=== PATIENT | female | born 1960 | race Caucasian/White ===

== ENCOUNTER → 2024-05-06 09:52 | Outpatient (BNVA) | payer OTHER, SELFPAY | PROVIDERS: PCP Family Medicine; Visit Provider Internal Medicine | DX: S60.222A Contusion of left hand, initial encounter (principal); S00.93XA Contusion of unspecified part of head, initial encounter; W18.30XA Fall on same level, unspecified, initial encounter | CPT/HCPCS: 73110 ==

== ENCOUNTER 2024-05-06 11:12 | Emergency (ER) | payer OTHER, MEDICARE, SELFPAY ==
--- NOTE | ~2024-05-06 | CT_ITS ---
EXAMINATION: CT FACIAL BONES WITHOUT CONTRAST CLINICAL INFORMATION: Status post fall. COMPARISON: None available. TECHNIQUE: Contiguous axial images through the maxillofacial bones using 3 mm collimation with bone and soft tissue algorithm. Sagittal and coronal reformatted images acquired. This CT examination was performed using dose optimization techniques as appropriate, variously including the following: *Automated exposure control *Adjustment of mA and/or kV according to patient size (this includes techniques or standardized protocols for targeted exams where dose is matched to indication/reason for exam; i.e. extremities or head) *Use of iterative reconstruction technique. DLP: 355.28 mGy centimeter. FINDINGS: Nasal bones, nasal septum and vomer are intact. Orbits are intact. No hematoma or fluid collections in the intraconal or extraconal compartments of the orbits. The eyeballs are intact. Zygomatic arcs are intact. Maxillary 3. Though plates are intact. Mandible is intact. No air-fluid levels in the paranasal sinuses. Tympanic cavities and mastoid cells are aerated. Pneumatized petrous apices, congenital. Degenerative changes in the temporomandibular joints more pronounced on the right side. Multilevel cervical spondylosis not fully included in the [id number]. Intracranial calcifications of the IVC is. CT/CT cervical spine wo IV con IMPRESSION: No acute fracture, maxillofacial bones. EXAMINATION: CT CERVICAL SPINE WITHOUT CONTRAST CLINICAL INFORMATION: Status post fall. COMPARISON: None available. TECHNIQUE: Contiguous axial images through the cervical spine using 3 mm collimation with bone and soft tissue algorithm. Sagittal and coronal reformatted images acquired. This CT examination was performed using dose optimization techniques as appropriate, variously including the following: *Automated exposure control *Adjustment of mA and/or kV according to patient size (this includes techniques or standardized protocols for targeted exams where dose is matched to indication/reason for exam; i.e. extremities or head) *Use of iterative reconstruction technique. DLP: 358.52 mGy centimeter. FINDINGS: Craniocervical junction is intact. Degenerative changes in the periodontal C1 region. Marginal osteophyte formation, endplate irregularity, subchondral cyst formation, disc desiccation and vacuum phenomenon from C3 to C7. Incomplete ankylosis of the right facet joint C2-3. No gross malalignment between the vertebral bodies or the facet joints. C1 is intact. C2 is intact. Right facet joint hypertrophy. C3 is intact. Right facet joint hypertrophy. C4 is intact. C5 is intact. C6 is intact. C3 7 is intact. No prevertebral compartment hematoma. IMPRESSION: Multilevel cervical spondylosis without acute fracture or trauma-related listhesis. Electronically signed by: Gurdeep Mcgee MD 05/06/2024 12:55 PM EDT
--- NOTE | ~2024-05-06 | XR_ITS ---
EXAMINATION: XR WRIST 3 OR MORE VIEWS LEFT, XR HAND 3 OR MORE VIEWS LEFT HISTORY: fall COMPARISON: There are no prior studies available for comparison. FINDINGS: Six views of the left hand and wrist are submitted. Osseous mineralization is normal. There is no fracture or dislocation. The joint spaces are preserved. The soft tissues are unremarkable. XR/XR hand LT min 3V IMPRESSION: No evidence of fracture of the left hand or wrist. Electronically signed by: Davonte Everett MD 05/06/2024 12:29 PM EDT
--- NOTE | ~2024-05-06 | CT_ITS ---
EXAMINATION: CT HEAD WITHOUT CONTRAST CLINICAL INFORMATION: +HS, RAE, fall COMPARISON: None available. TECHNIQUE: Contiguous axial imaging was performed from the skull base to vertex without intravenous administration of contrast. This CT examination was performed using dose optimization techniques as appropriate, variously including the following: *Automated exposure control *Adjustment of mA and/or kV according to patient size (this includes techniques or standardized protocols for targeted exams where dose is matched to indication/reason for exam; i.e. extremities or head) *Use of iterative reconstruction technique DLP: 632 mGy-cm FINDINGS: The bony calvarium is intact. The skull base is intact. No acute intracranial hemorrhage, mass effect, midline shift, hydrocephalus or herniation. Dooley-white matter differentiation is normal. Posterior cranial fossa contents demonstrated no gross masses or acute hemorrhage. Sellar/suprasellar region demonstrated no gross masses. No air-fluid levels in the included paranasal sinuses. Tympanic cavities and mastoid air cells are aerated. CT/CT head/brain wo IV con IMPRESSION: No acute fracture, bony calvarium. No acute intracranial hemorrhage. Electronically signed by: Gurdeep Mcgee MD 05/06/2024 01:05 PM EDT
--- NOTE | ~2024-05-06 | CT_ITS ---
EXAMINATION: CT FACIAL BONES WITHOUT CONTRAST CLINICAL INFORMATION: Status post fall. COMPARISON: None available. TECHNIQUE: Contiguous axial images through the maxillofacial bones using 3 mm collimation with bone and soft tissue algorithm. Sagittal and coronal reformatted images acquired. This CT examination was performed using dose optimization techniques as appropriate, variously including the following: *Automated exposure control *Adjustment of mA and/or kV according to patient size (this includes techniques or standardized protocols for targeted exams where dose is matched to indication/reason for exam; i.e. extremities or head) *Use of iterative reconstruction technique. DLP: 355.28 mGy centimeter. FINDINGS: Nasal bones, nasal septum and vomer are intact. Orbits are intact. No hematoma or fluid collections in the intraconal or extraconal compartments of the orbits. The eyeballs are intact. Zygomatic arcs are intact. Maxillary 3. Though plates are intact. Mandible is intact. No air-fluid levels in the paranasal sinuses. Tympanic cavities and mastoid cells are aerated. Pneumatized petrous apices, congenital. Degenerative changes in the temporomandibular joints more pronounced on the right side. Multilevel cervical spondylosis not fully included in the [id number]. Intracranial calcifications of the IVC is. CT/CT facial bones wo IV con IMPRESSION: No acute fracture, maxillofacial bones. EXAMINATION: CT CERVICAL SPINE WITHOUT CONTRAST CLINICAL INFORMATION: Status post fall. COMPARISON: None available. TECHNIQUE: Contiguous axial images through the cervical spine using 3 mm collimation with bone and soft tissue algorithm. Sagittal and coronal reformatted images acquired. This CT examination was performed using dose optimization techniques as appropriate, variously including the following: *Automated exposure control *Adjustment of mA and/or kV according to patient size (this includes techniques or standardized protocols for targeted exams where dose is matched to indication/reason for exam; i.e. extremities or head) *Use of iterative reconstruction technique. DLP: 358.52 mGy centimeter. FINDINGS: Craniocervical junction is intact. Degenerative changes in the periodontal C1 region. Marginal osteophyte formation, endplate irregularity, subchondral cyst formation, disc desiccation and vacuum phenomenon from C3 to C7. Incomplete ankylosis of the right facet joint C2-3. No gross malalignment between the vertebral bodies or the facet joints. C1 is intact. C2 is intact. Right facet joint hypertrophy. C3 is intact. Right facet joint hypertrophy. C4 is intact. C5 is intact. C6 is intact. C3 7 is intact. No prevertebral compartment hematoma. IMPRESSION: Multilevel cervical spondylosis without acute fracture or trauma-related listhesis. Electronically signed by: Gurdeep Mcgee MD 05/06/2024 12:55 PM EDT
--- NOTE | ~2024-05-06 | XR_ITS ---
EXAMINATION: XR ELBOW 3 VIEWS LEFT HISTORY: fall COMPARISON: There are no prior studies available for comparison. FINDINGS: Three views of the left elbow are submitted. Osseous mineralization is normal. There is a joint effusion with elevation of the anterior and posterior fat pads. There is angulation of the radial neck suspicious for a nondisplaced fracture. There is no dislocation. The joint spaces are maintained. XR/XR elbow LT min 3V IMPRESSION: Elbow joint effusion. Probable fracture of the radial neck. Follow-up is recommended. Electronically signed by: Davonte Everett MD 05/06/2024 12:32 PM EDT
[2024-05-06 11:38] VITALS: BP 128/60; PULSE 69; RESP 16; TEMP 37.2; O2SAT 99; BMI 29.7
--- NOTE | 2024-05-06 11:38 | ED_ITS ---
HPI - Extremity Injury (Upper) General Chief Complaint: Fall Stated Complaint: Fall, wrist injury Time Seen by Provider: 05/06/24 13:47 Source: patient, RN notes reviewed and old records reviewed Mode of arrival: wheelchair History of Present Illness ED Provider: Sarah Pyle PA-C HPI narrative: 64-year-old female with no significant past medical history presenting to the ED complaining of headache, facial pain, neck pain, and left arm pain s/p mechanical trip and fall at work [employer]. States tripped over shoes, fell on face with + head strike, denies LOC or anticoagulation use. States fell on outstretched arm. denies symptoms prior to fall. Denies epistaxis, nausea, vomiting, vision change or loss, CP/ SOB Related Data Allergies Allergy/AdvReac Type Severity Reaction Status Date / Time meperidine [Demerol] Allergy Unknown Unknown Verified 05/06/24 11:39 adhesive Allergy Unknown Unknown Uncoded 05/06/24 11:39 latex Allergy Unknown Unknown Uncoded 05/06/24 11:39 Review of Systems Review of Systems: Yes all other systems are reviewed and are negative Constitutional: Constitutional: Reports as per HPI Neurologic: Denies Abnormal speech present [facility] Past Medical History Attestation statement: The following information was validated with the patient. Source: old records reviewed Physical Exam Vital Signs: Vital Signs: Last Vital Signs Temp 98.6 F 05/06/24 13:45 Pulse 73 05/06/24 13:45 Resp 20 05/06/24 13:45 BP 127/61 05/06/24 13:45 Pulse Ox 98 05/06/24 13:45 O2 Del Method Room Air 05/06/24 13:45 BMI result Body Mass Index 29.7 Const: General: cooperative, healthy appearing and no acute distress Orientation/consciousness: patient oriented x3 Limitations: no limitations HEENT: Other: + Nasal abrasions & swelling with sligh t ecchymosis no active epistaxis. No septal hematoma Head: Yes normal to inspection, No Sanon's sign, No palpable skull fracture and No raccoon eyes Ears: hearing grossly normal bilaterally General nose exam: no epistaxis Face and sinus: Yes normal facial exam Mouth: Normal oral and palatal mucosa present and no drooling Throat: Yes posterior oropharynx normal and Yes uvula midline Eyes: General: appearance normal, both eyes and all related structures Pupils: Equal, round and reactive pupils present EOM: EOMs intact bilaterally Neck: Neck: Yes normal visual inspection, Yes full ROM, Yes no meningeal signs and No anterior neck swelling Resp: Effort & Inspection: normal respiratory effort and no respiratory distress Cardio: Rate: regular rate GI: Inspection: Yes normal to inspection Palpation (GI): Soft to palpation, nontender, no guarding and not rigid Back/Spine/Pelvis: Other: No midline cervical/thoracic/lumbar spinous tenderness/step-off or deformity Skin: Rashes: no rashes Wounds: no wounds Neuro: General: patient oriented x3, gait normal, tone normal, moves all extremities, no meningeal signs, no focal motor deficits and CN's II-XI intact bilaterally Cranial nerves: Yes CN's II-XII intact bilaterally, Yes Equal, round and reactive pupils present and Yes Bilaterally intact EOM present Cognition (Neuro): normal cognition Speech: No Abnormal speech present Gait exam (Neuro): Normal gait present Motor exam (neuro): 5/5 motor strength present throughout Extrem: Other: Left shoulder without noted deformity. ROM intact. Left elbow with mild swelling. Tender to palpation. Limited full extension secondary to pain. Supination/ pronation intact. Left wrist/ hand with mild tenderness. No deformity. No snuffbox tenderness. Neurovascularly intact. [id number] opposition intact. Course Course Course Narrative: This is a Rapid Medical Exam performed in triage by Sarah Pyle PA-C. Full HPI, ROS and PE to be performed by primary ED provider. 64yo F presenting to the ED c/o facial pain/RAE, neck pain, & LUE pain s/p mechanical fall at work [employer]. +head strike. No AC use. Denies sx prior to fall PE: +nasal swelling & ecchymosis, +L wrist & L elbow ttp. elbow w/limited ROM. NV intact distally Plan: XR's, CT's CT head/brain wo IV con IMPRESSION: No acute fracture, bony calvarium. No acute intracranial hemorrhage. CT cervical spine wo IV con IMPRESSION: Multilevel cervical spondylosis without acute fracture or trauma-related listhesis. CT facial bones wo IV con IMPRESSION: No acute fracture, maxillofacial bones. XR elbow LT min 3V IMPRESSION: Elbow joint effusion. Probable fracture of the radial neck. Follow-up is recommended. > sling applied XR hand LT min 3V IMPRESSION: No evidence of fracture of the left hand or wrist. Results discussed with patient including worrisome signs and symptoms and strict return precautions, and when to return to the emergency department. They verbalized understanding and feel safe for discharge at this time. Medical Decision Making Medical Decision Making [facility] Narrative: 64-year-old female with no significant past medical history presenting to the ED complaining of headache, facial pain, neck pain, and left arm pain s/p mechanical trip and fall at work [employer]. On exam vital signs stable, NAD, nontoxic appearing, physical exam as noted above. No midline spinous tenderness throughout or red flag symptoms. No focal neuro deficits. Concern for fractures vs ICH vs contusion vs concussion. plan: Head/ C-spine/ facial bone CT, x-ray Please refer to course for remaining clinical decision making, interpretation of labs/imaging results, and discussions with consultants and/or family members. Differential Diagnosis Differential Diagnoses: The differential diagnosis associated with the presentation includes As above Admission/Observation Consideration of admission/observation: Escalation of care including admission/observation considered Lab Data [facility] Lab Attestation statement: I reviewed the patient's lab results. Independent Interpretation I performed an independent interpretation of an: Plain X-Ray and CT Scan Radiology Impression Discussion of test interpretation with radiology: I have reviewed the radiologist's reading. Independent Historian Clinical information obtained from an independent historian. History obtained from or confirmed by: Friend External Record Review External record reviewed: Inpatient record, Office record, Outpatient record, Prior outpatient labs, Prior outpatient radiology, Primary care record and Outside ED record Tests considered The following testing was considered but not selected: As above Prescription Management I considered prescription management with: Pain Medication Social Determinants Patient?s care significantly limited by Social Determinants of Health including: Other Social Determinant of Health Procedures Orthopedic Splinting/Casting Injury #1: Side: left Upper Extremity Injury Location: elbow Upper Extremity Immobilizer: sling/shoulder immobilizer Discharge Plan Discharge Clinical Impression: Closed fracture of neck of left radius, Fall, Head injury Patient Disposition: Home, Self-Care Instructions: Elbow Fracture (ED), Head Injury (ED) Additional Instructions: you have a nondisplaced fracture of your radial neck, elbow. Please wear sling. Please continue to move your shoulder, wrist, and fingers so you not develop frozen joints Ice Elevate take Tylenol and ibuprofen for pain FOLLOW UP WITH ORTHOPEDICS, PLEASE CALL TO MAKE AN APPOINTMENT NO HEAVY LIFTING TO LEFT UPPER EXTREMITY if pain persists or worsens / becomes unbearable, you develop constant worsening headaches, nausea /vomiting, vision change, vision loss, weakness return to the ED Referrals: [facility] [place] [facility] [Provider Group] - 1 week Stand Alone Forms: Work/School Release Print Language: Algerian
[2024-05-06 13:45] VITALS: BP 127/61; PULSE 73; RESP 20; TEMP 37; O2SAT 98
[2024-05-06 14:47] VITALS: BP 120/61; PULSE 62; RESP 18; TEMP 36.8; O2SAT 98
== END 2024-05-06 14:49 | disposition home or self-care (01) ==
PROVIDERS: Emergency Provider Emergency Medicine; PCP Family Medicine
DX: S52.132A Displaced fracture of neck of left radius, initial encounter for closed fracture (principal); S00.31XA Abrasion of nose, initial encounter; S09.90XA Unspecified injury of head, initial encounter; S00.33XA Contusion of nose, initial encounter; M79.602 Pain in left arm; M54.2 Cervicalgia; R51.9 Headache, unspecified; W01.0XXA Fall on same level from slipping, tripping and stumbling without subsequent striking against object, initial encounter; Y93.9 Activity, unspecified; Y92.9 Unspecified place or not applicable; Y99.8 Other external cause status
CPT/HCPCS: 29105; 70450; 70486; 72125; 73080; 73130; 99283; 99284

== ENCOUNTER → 2024-05-06 11:38 | Outpatient (BNV) | payer OTHER, SELFPAY | PROVIDERS: PCP Family Medicine; Visit Provider Radiology Diagnostic Radiology | DX: S69.92XA Unspecified injury of left wrist, hand and finger(s), initial encounter (principal); S19.9XXA Unspecified injury of neck, initial encounter; S09.90XA Unspecified injury of head, initial encounter; R51.9 Headache, unspecified; M25.422 Effusion, left elbow | CPT/HCPCS: 70450; 70486; 72125; 73080; 73110; 73130 ==

== ENCOUNTER 2024-05-19 09:49 | Outpatient (AMB) | payer OTHER, MEDICARE, SELFPAY ==
--- NOTE | 2024-05-19 09:59 | A.OFFVIS_ITS ---
Vital Signs 05/19/24 10:06 Height 5 ft 5 in Weight 178 lb BMI 29.6 Handedness Right Intake Visit Reasons: FC- Left radius neck fracture WC DOI 05/06/24 Intake Note: Nahid is a 64 year old right hand dominant female who presents today for a evaluation of her left radius head fx, DOI 05/06/24. Patient states that she tripped and feel over her own feet at work landing on her arm that was overstretched. She was seen at the ED were they gave her a sling and informed her to move her shoulder, wrist and fingers so she doesn't develop frozen joint s. Patient mentions that she is doing better. She states when she is lifting something her arm tends to hurt. Patient has tried Tylenol and Voltaren cream which gives her relief. 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 (doesn't picky up anything heavy no more than a bottle of water) Allergies meperidine [Demerol] Allergy (Unknown, Verified 05/19/24 10:05) Unknown adhesive Allergy (Unknown, Uncoded 05/06/24 11:39) Unknown latex Allergy (Unknown, Uncoded 05/06/24 11:39) Unknown HPI HPI FC- Left radius neck fracture WC DOI 05/06/24: Details: Ms. Schaefer is a 64-year-old [id number] female who presents the office today for evaluation of left elbow and left wrist pain. She sustained an injury on 05/06/2024 where she tripped and fell at work landing on an outstretched arm. She was seen in the emergency department where x-rays were obtained and were significant for a fat pad sign at the elbow. An occult fracture was suspected and therefore she was given a sling and instructed to follow-up with orthopedics outpatient for further evaluation and treatment. She reports that at the time her wrist was not examined but she continues to have persistent pain along the radial aspect of the wrist. 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 No ecchymosis, erythema, or edema. No tenderness to palpation over the olecranon. No tenderness to the medial or lateral epicondyle. Mild tenderness to palpation over the radial head. NVI. Left wrist normal to inspection no ecchymosis erythema or edema. Tenderness to palpation over the distal radius near the area of the radial styloid. No snuffbox tenderness. Able to make a full fist and extend all digits to end range. Able to perform finger abduction, adduction, finger cross, thumbs-up and okay sign without deficit. NVI. Office Procedures AMB Fracture Care Fracture Billing Code: Fracture Billing Code Assessment & Plan Assessment & Plan (1) Distal radius fracture, left: Code(s): S52.502A - Unspecified fracture of the lower end of left radius, initial encounter for closed fracture Category: Medical (2) Radial head fracture: Code(s): S52.123A - Displaced fracture of head of unspecified radius, initial encounter for closed fracture Category: Medical Plan On the office today, we discussed the radial head fracture management is sling as needed with gentle range of motion of flexion, extension pronation and supination of the elbow. These exercises were demonstrated to the patient while in the office today. I instructed no lifting pushing or pulling with the left upper extremity. For the patient's wrist she is significantly tender at the distal radius along the area of the radial styloid. X-ray imaging may indicate the possibility of a nondisplaced fracture. Therefore, I have placed her into a thermal molded volar splint [id number]. She can take this off for hand washing and bathing. I would like to see her back in 4 weeks with repeat x- rays, sooner if needed. 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 X-rays of the left elbow which were obtained while in the office today and were reviewed by me, Shanique Coulter PA-C, revealed possible occult fracture of the radial head. X-rays of the left wrist which were obtained while in the office today and were reviewed by me, Shanique Coulter PA-C, revealed possible nondisplaced fracture of the distal radius. Orders: Orders XR elbow LT min 3V 05/19/24 M25.529 - Pain in unspecified elbow XR wrist LT w scaphoid 05/19/24 M25.539 - Pain in unspecified wrist Coding Level of Care Code New Pt Level 4 (75499) Diagnoses Distal radius fracture, left S52.502A Radial head fracture S52.123A CPT Codes Fracture Care - Fracture Billing Code: Fracture Billing Code ([id number])
[2024-05-19 10:06] VITALS: BMI 29.6
== END 2024-05-19 11:25 | disposition home or self-care (01) ==
LOC: HO.HOS 09:50
PROVIDERS: PCP Family Medicine; Visit Provider Physician Assistant
DX: S52.502A Unspecified fracture of the lower end of left radius, initial encounter for closed fracture (principal); S52.123A Displaced fracture of head of unspecified radius, initial encounter for closed fracture
CPT/HCPCS: 99203

== ENCOUNTER → 2024-05-19 09:53 | Outpatient (BNV) | payer OTHER, MEDICARE, SELFPAY | PROVIDERS: Visit Provider Radiology Diagnostic Radiology | DX: M25.522 Pain in left elbow (principal) | CPT/HCPCS: 73080; 73110 ==

== ENCOUNTER 2024-05-19 10:21 | Outpatient (REF) | payer OTHER, MEDICARE, SELFPAY ==
--- NOTE | ~2024-05-19 | XR_ITS ---
EXAMINATION: XR ELBOW 3 VIEWS LEFT HISTORY: M25.529 - Pain in unspecified elbow COMPARISON: There are no prior studies available for comparison. FINDINGS: Three views of the left elbow are submitted. The examination is limited by patient motion. Osseous mineralization is normal. No definite fracture is seen. There is no dislocation. The joint spaces are preserved. There may be a small joint effusion. XR/XR elbow LT min 3V IMPRESSION: Possible small joint effusion. Limited examination due to patient motion. No definite fracture is seen, although if there is a history of trauma, there may be an occult fracture. Follow-up films are recommended. Electronically signed by: Davonte Everett MD 05/19/2024 10:58 AM EDT
--- NOTE | ~2024-05-19 | XR_ITS ---
CLINICAL HISTORY: M25.539 - Pain in unspecified wrist 4 view left wrist Comparison: None Findings: Bones intact. No dislocations. No significant arthritic change or erosions. No radiopaque foreign body. IMPRESSION: 1. No acute findings This document has been electronically signed by: Sandro Luna MD on 05/21/2024 07:52:32
== END 2024-05-19 10:22 | disposition home or self-care (01) ==
LOC: HO.HOSX 10:21
PROVIDERS: Visit Provider Physician Assistant
DX: M25.522 Pain in left elbow (principal); M25.532 Pain in left wrist
CPT/HCPCS: 73080; 73110; 99202

== ENCOUNTER 2024-06-14 | Outpatient (REF) | payer OTHER, SELFPAY ==
--- NOTE | ~2024-06-14 | XR_ITS ---
EXAMINATION: XR WRIST NAVICULAR LEFT HISTORY: M25.539 - Pain in unspecified wrist COMPARISON: Comparison is made with the prior examination dated 05/19/2024. FINDINGS: Four views of the left wrist including a scaphoid view are submitted. Osseous mineralization is normal. There is no fracture or dislocation. The joint spaces are preserved. The soft tissues are unremarkable. XR/XR wrist LT w scaphoid IMPRESSION: Unremarkable examination of the left wrist. Electronically signed by: Davonte Everett MD 06/16/2024 08:15 AM EDT
--- OUTSIDE RECORDS SUMMARY | 2024-08-15 08:26 | XMS_ITS | Data Portability ---
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 Time On Scene with Patient: 00:22:11 [email or web address] Not available 08/22/2019 18:40:26 Plan of Treatment Reminders Order Date Submit Date Provider Last Modified By Organization Details Last Modified Time Details Appointments None recorded. Lab urinalysis , dipstick 2019 [email or web address] 31 [facility] [place] [facility], [address] [place], [address], 0 18:15:51 culture, urine 2019 MARVIN [facility] (Centralized Electronic Ordering - All Locations), Patient Can Go To The Location Of Their Choice, [id number] 0 07:48:58 Referral None recorded. Procedures None recorded. Surgeries None recorded. Imaging None recorded. Medication Orders Keflex 500 mg capsule 2019 020 [id number], [address], [place], [phone], 0 18:15:59 cephalexin 500 mg capsule 2019 [...] flank pain, malaise and sometimes shaking chills. UTI s are common in women because of the female anatomy, and much less common in males. INSTRUCTIONS Drink plenty of fluid, water is best. Drinking fluids will help to flush the bacteria from your body. Urinate every 2-3 hours Wear cotton underwear and avoid Nylon, Spandex and Lycra which tend to trap moisture and thong underwear which may facilitate UTI s. Avoid tub baths Avoid using Super Tampons [...] condition between 8am-10pm, please call [facility] at [phone] to help navigate your care. [email or web address] Not available 08/22/2019 18:20:35 Reason for Referral None Reported. Results Created Date Observation Date Name Description Value Unit Range Abnormal Flag Note LastModifiedBy Organization Detail LastModifiedTime 08/22/19 20 08/22/2019 urina lysis , dipst ick Appearance cloudy Not Available Spr - [facility] [address], [place], [address], 08/22/2019 18:11:59 08/22/19 20 08/22/2019 urina lysis , dipst ick Color yellow Not Available Spr - Home [address], [place], [address], 08/22/2019 18:11:59 08/22/1908/22/2019 urina lysis , dipst ick Glucose negati ve Not Available Spr - Home [address] [place], [address], 08/22/2019 18:11:59 08/22/1908/22/2019 urina lysis , dipst ick Bilirubin positi ve Not Available Spr - Home [address] [place], [address], 08/22/2019 18:11:59 08/22/1908/22/2019 urina lysis , dipst ick Ketones NEG Not Available Spr - Home [address] [place], [address], 08/22/2019 18:11:59 08/22/1908/22/2019 urina lysis , dipst ick Sp. [place] 1.020 Not Available Spr - Home [address] [place], [address], 08/22/2019 18:11:59 08/22/19 20 08/22/2019 urina lysis , dipst ick Blood + Not Available Spr - Home [address] [place], [address], 08/22/2019 18:11:59 08/22/19 20 08/22/2019 urina lysis , dipst ick pH 5 Not Available Spr - Home [address] [place], [address], 08/22/2019 18:11:59 08/22/19 20 08/22/2019 urina lysis , dipst ick Protein negati ve Not Available Spr - Home [address] [place], [address], 08/22/2019 18:11:59 08/22/19 20 08/22/2019 urina lysis , dipst ick Urobilirubin negati ve Not Available Spr - Home [address] [place], [address], 08/22/2019 18:11:59 08/22/19 20 08/22/2019 urina lysis , dipst ick Nitrites +++ Not Available Spr - [facility] e [address] [place], [address], 08/22/2019 18:11:59 08/22/19 20 08/22/2019 urina lysis , dipst ick Leukocytes +++ Not Available Spr - [facility] [address] [place], [address], 08/22/2019 18:11:59 08/22/1908/23/2019 cultu re, urine specimen description URINE CLEAN CATCH/ MIDSTR EAM Not Available [facility] (Centralized Electronic Ordering - All Locations) Patient Can Go To The Location Of Their Choice, 08/25/2019 07:48:58 08/22/1908/23/2019 cultu re, urine special requests NONE Not Available [facility] (Centralized Electronic Ordering - All Locations) Patient Can Go To The Location Of Their Choice, [id number] 08/25/2019 07:48:58 08/22/1908/25/2019 cultu re, urine culture abnormal >100, 000 COL/M L CITRO BACTE R FREUN DII >100, 000 COL/M L STREP TOCOC CI, GR.B BETA HEMOL YTIC ISOLA VERNA DAVID PTIBI LITY TESTI NG NOT ROUTI SERGIO [...] Name and Address Organization Details Recorded Time [id number] tetanus immune globulin, human medicatio n Not available Not available Not available 08/22/2019 21248 [facility] NICOLE BEAL NP [address] [place], [address], [place] [facility] 0 18:03:55 [id number] Demerol medicatio n Not available Not available Not available 08/22/2019 00870 1 [facility] NICOLE BEAL NP [address] [place], [address], [place] [facility] [...] Time Father No current problems or disability [email or web address] Not available 18:07:21 Mother No current problems or disability [email or web address] Not available 18:07:21 Mother Malignant neoplastic disease [email or web address] Not available 07/2019 18:07:34 Medical History Condition Response Depression Y Gynecological HistoryNo gynecological history recorded. Obstetrics History GPAL:G 0 P 0 0 0 0 Past Encounters Encounter ID Performer Location Encounter Start Date Encounter Closed Date Diagnosis/Indication Diagnosis SNOMED-CT Code Diagnosis ICD10 Code Diagnosis Note [id number] NICOLE BEAL NP [facility] [address] [facility] [place] [address] 08/22/2019 18:02:23 08/23/2019 15:41:19 Urinary tract infectious disease 94562466 N39.0 Health Concerns Section Related Observation LastModified by Organization Detai ls LastModified Time None Recorded Concern Status LastModified by Organization Details LastModified Time None Recorded Advance Directives Directive None Recorded Payers Insurance Date Sequence Insurance Name Policy Number Policy Schneider Covered Member ID Schneider Member ID Guarantor Name 11/06/2020 1 [facility] [id number] Nahid Schaefer [id number] Nahid Schaefer 11/06/2020 1 *SELF PAY* Nahid Schaefer [id number] Nahid Schaefer Notes Date Note Type Note Provider Name and Address Organization Details Recorded Time 08/22/2019 text/html Patient is a 59-year-old female [facility]. We have been doing her household did treat other family members in the past. She has a medical history significant for depression, osteoarthritis, frequent urinary tract infections related to bladder sling surgery in the past. [facility] has been having left [...] pain. NICOLE BEAL, ESME [address], [place], [address], [place] - [facility] 08/22/2019 18:40:36 OBGyn Episode No OBEpisode recorded.
== END 2024-06-14 00:01 ==
LOC: HO.HOSX
PROVIDERS: Visit Provider Physician Assistant
DX: S52.123D Displaced fracture of head of unspecified radius, subsequent encounter for closed fracture with routine healing (principal); S52.502D Unspecified fracture of the lower end of left radius, subsequent encounter for closed fracture with routine healing
CPT/HCPCS: 73110; 99212

== ENCOUNTER 2024-06-14 11:39 | Outpatient (AMB) | payer OTHER, SELFPAY ==
--- NOTE | 2024-06-14 11:45 | MHC.OFFVIS ---
Vital Signs 06/14/24 11:47 Height 5 ft 5 in Weight 178 lb BMI 29.6 Intake Visit Reasons: OV- Left radius neck fracture WC DOI 05/06/24 Intake Note: Nahid is a 64 year old right hand dominant female who presents today for a follow up of her left radius head fx, DOI 05/06/24. Patient reports no complaints or concerns at the moment. She states having some discomfort with over use. Allergies meperidine [Demerol] Allergy (Unknown, Verified 06/14/24 11:47) Unknown adhesive Allergy (Unknown, Uncoded 05/06/24 11:39) Unknown latex Allergy (Unknown, Uncoded 05/06/24 11:39) Unknown HPI HPI OV- Left radius neck fracture WC DOI 05/06/24: Details: Ms. Schaefer is a 64-year-old right-hand dominant female who presents to the office today for follow-up of a left radial head fracture and possible right distal radius fracture that she sustained on 05/06/2024 while she tripped and fell at work. At her last appointment on 05/19/2024 the patient was given a thermal molded volar splint off the shelf and instructed that she should not perform any lifting pushing or pulling. 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 No ecchymosis, erythema, or edema. Able to perform full finger flexion, extension, abduction, adduction, finger cross, okay sign, and thumbs up without deficit. Able to make a closed fist. Able to flex and extend the wrist to end range. Sensation intact. Capillary refill is brisk. Radial pulse intact. Left elbow: Normal to inspection. No ecchymosis, erythema, or edema. No tenderness to palpation over the olecranon. No tenderness to the medial or lateral epicondyle. Slight tenderness to palpation over the radial head. Able to perform full pronation, supination, flexion and extension without difficulty. NVI. Assessment & Plan Assessment & Plan (1) Distal radius fracture, left: Code(s): S52.502A - Unspecified fracture of the lower end of left radius, initial encounter for closed fracture Category: Medical (2) Radial head fracture: Code(s): S52.123A - Displaced fracture of head of unspecified radius, initial encounter for closed fracture Category: Medical Plan Ms. Schaefer is a 64-year-old right-hand dominant female who presents to the office today for follow-up of a left radial head fracture and possible right distal radius fracture that she sustained on 05/06/2024 while she tripped and fell at work. At her last appointment on 05/19/2024 the patient was given a thermal molded volar splint off the shelf and instructed that she should not perform any lifting pushing or pulling. While the office today, the patient reports that her pain and inflammation has decreased since her last visit. She is only slightly tender over the radial head. No tenderness to palpation along the distal radius or the radial styloid were prior suspicion of fracture was located. She may discontinue wearing the thermal molded volar splint at this time. There was consideration of occupational therapy however the patient is doing very well with motion therefore this was deferred at this time. She will follow up p.r.n., sooner if needed. X-rays of the left wrist and scaphoid which were obtained while in the office today and were reviewed by me, Shanique Coulter PA-C, revealed no acute fracture dislocation. Orders: Orders XR wrist LT w scaphoid Today M25.539 - Pain in unspecified wrist Coding Level of Care Code Est Pt Level 3 (51895) Diagnoses Distal radius fracture, left S52.502A Radial head fracture S52.123A
[2024-06-14 11:47] VITALS: BMI 29.6
--- OUTSIDE RECORDS SUMMARY | 2024-06-14 13:48 | XMS_ITS | Data Portability ---
Author Organization [place] [facility] Address [address] [place] [id number] Care Team Providers Care Financial Assistant Name Role Phone RAYRAY RAMIREZ Primary Care Provider [phone] Assessment Encounter Date Assessment Date Assessment LastModified by Organization Details LastModified Time 08/22/2019 08/22/2019 Overview/History :[facility] his 59[facility]year-old [facility] has been having some left lower quadrant abdominal discomfort. She tells me that this pain is very similar to the pain she gets when she has urinary tract infections. She also feels some pressure in her bladder. She has a history of a bladder sling procedure in the past, she tells me she was recently at a [place] and voided in the [place]. She tells me she frequently gets urinary tract infections after doing this. She denies any fevers or chills and no low back pain. She has been staying well hydrated. She had some leftover Flagyl from when she had diverticulitis, she tried taking this as see if it would help with her symptoms but she reports it just made her nauseous. Exam: On exam patient is awake and alert, afebrile and hemodynamically stable. Her blood pressure is a little on the low side however she says that this is baseline for her. She does not have any CVA tenderness, she has clear lungs bilaterally, normal bowel sounds and no pain with palpation. DDx considered, but not limited to:Urinary tract infection is likely as urinalysis was positive for trace blood, leukocytes and nitrates. Pyelonephritis unlikely has no CVA tenderness and no fever. She already has had her appendix and gallbladder removed. Abdomen soft, peritonitis or acute abdomen unlikely. Work up/Results:Urinaly sis showing 1+ blood, nitrates. Urine culture pending. Plan/Discussion:I reviewed the results of urinalysis with the patient. I have given her a dose of Keflex today and sent a prescription for a seven-day course to her pharmacy. I did discuss taking a probiotic while on antibiotics with her. I have encouraged her to stay well hydrated. If she were to develop fevers or low back pain she should contact PCP as this may be a sign of worsening infection. Patient verbalized understanding of discharge instructions as well as ER precautions. Proper Personal Protective Equipment (PPE), including gloves, eye protection and masks were donned and doffed appropriately and all equipment cleaned using approved technique with germicidal disposable wipes prior to and after care of this patient according to [facility]'s infection prevention protocols. Time On Scene with Patient: 00:22:11 [email or web address] Not available 08/22/2019 18:40:26 Plan of Treatment Reminders Order Date Submit Date Provider Last Modified By Organization Details Last Modified Time Details Appointments None recorded. Lab urinalysis , dipstick 2019 [email or web address] 31 [facility], [address] [place] [address], [phone], 0 18:15:51 culture, urine 2019 MARVIN [facility] (Centralized Electronic Ordering - All Locations), Patient Can Go To The Location Of Their Choice, [id number] 0 07:48:58 Referral None recorded. Procedures None recorded. Surgeries None recorded. Imaging None recorded. Medication Orders Keflex [address] [id number], [address], [place], [id number], 0 18:15:59 cephalexin 500 mg capsule 2019 020 [email or web address] Not available 0 18:26:06 Patient TargetsNo targets recorded. Patient Instructions Encounter Date Encounter Id Patient Instructions Last Modified By Organization Details Last Modified Time 08/22/[id number] WE DIPPED YOUR URINE TODAY AND IT WAS SUGGESTIVE OF INFECTION. YOU WERE STARTED ON ANTIBIOTICS AND WE ARE SENDING YOUR URINE FOR CULTURE. IF YOU NEED A DIFFERENT ANTIBIOTIC WE WILL CONTACT YOU IF YOU STARTED TO DEVELOPE BACK PAIN OR FEVERS PLEASE CONTACT PCP THIS CAN BE A SIGN OF THE INFECTION SPREADING TO YOUR KIDNEYS URINARY TRACT INFECTION INSTRUCTIONS BASIC INFORMATION Urinary tract infections(UTI) can involve any portion of the urinary tract. The most common presentation is a bladder infection/cystitis, which usually presents with urinary frequency, burning with urination, urgency, foul smelling cloudy urine and occasionally blood. Kidney infections are less frequent, but more serious, and present with fever, flank pain, malaise and sometimes shaking chills. UTI? s are common in women because of the female anatomy, and much less common in males. INSTRUCTIONS Drink plenty of fluid, water is best. Drinking fluids will help to flush the bacteria from your body. Urinate every 2-3 hours Wear cotton underwear and avoid Nylon, Spandex and Lycra which tend to trap moisture and thong underwear which may facilitate UTI? s . Avoid tub baths Avoid using Super Tampons Use only mild unscented soap to wash your genitals, such as Dove or Ivory, avoid heavily scented body washes. If you are sexually active urinate as soon as possible after intercourse. Yogurt and probiotics may help to establish a more healthy genital environment, and aid in prevention. MEDICATIONS 1.Antibiotics: Usually prescribed if you have a UTI, there are many different effective antibiotics available. It is important that you complete the course of antibiotics you are given. You should feel some improvement within 24-48 hours, if you do not it may be that the bacteria causing your infection is resistant to the prescribed medication. If a urine culture is obtained it will usually take at least 3-4 days to get the final result. 2. Anesthetic/Pain relievers: Phenazopyridine (Pyridium, Uribelle, AZO) is an anesthetic excreted in the urine. This medicine will turn your urine BRIGHT ORANGE! This is normal, and may stain your underwear can contacts. Take this medication as directed with food. 3. Tylenol and Ibuprofen can be helpful for the pain, fever and body aches that can be associated with a kidney infection. Please follow recommended dosing instructions on the bottle. FOLLOW UP 1. If your symptoms are not improving in 24-48 hours 2. If your symptoms are getting more severe 3. Any unusual vaginal discharge 4. Symptoms recur after you complete medication SEEK CARE IMMEDIATELY IF 1.You have shaking chills or temperature over 101.5 2. Severe flank pain 3. Persistent vomiting, unable to keep fluids or medicine down. 4. Worse despite medication. If you develop any new or worsening symptoms and need after hours care, please go to nearest ER and/or call 911. If you have additional concerns or develop a change in your condition between 8am-10pm, please call [facility] at [phone] to help navigate your care. Not available 08/22/2019 18:20:35 Reason for Referral None Reported. Results Created Date Observation Date Name Description Value Unit Range Abnormal Flag Note LastModifiedBy Organization Detail LastModifiedTime 08/22/19 20 08/22/2019 urina lysis , dipst ick Appearance cloudy Not Available [facility] [address] [place], [address], 08/22/2019 18:11:59 08/22/1908/22/2019 urina lysis , dipst ick Color yellow Not Available Spr - [facility] [address] [place], [address], 08/22/2019 18:11:59 08/22/1908/22/2019 urina lysis , dipst ick Glucose negati ve Not Available Spr - Home [address] [place], [address], 08/22/2019 18:11:59 08/22/1908/22/2019 urina lysis , dipst ick Bilirubin positi ve Not Available Spr - Home [address] [place], [address], 08/22/2019 18:11:59 08/22/1908/22/2019 urina lysis , dipst ick Ketones NEG Not Available Spr - Home [address] [place], [address], 08/22/2019 18:11:59 08/22/1908/22/2019 urina lysis , dipst ick Sp. [place] 1.020 Not Available Spr - Home [address] [place], [address], 08/22/2019 18:11:59 08/22/19 20 08/22/2019 urina lysis , dipst ick Blood + Not Available Spr - Home [address] [place], [address], 08/22/2019 18:11:59 08/22/19 20 08/22/2019 urina lysis , dipst ick pH 5 Not Available Spr - Home [address] [place], [address], 08/22/2019 18:11:59 08/22/19 20 08/22/2019 urina lysis , dipst ick Protein negati ve Not Available Spr - Home [address] [place], [address], 08/22/2019 18:11:59 08/22/19 20 08/22/2019 urina lysis , dipst ick Urobilirubin negati ve Not Available Spr - Home [address] [place], [address], 08/22/2019 18:11:59 08/22/19 20 08/22/2019 urina lysis , dipst ick Nitrites +++ Not Available Spr - [facility] [address] [place], [address], 08/22/2019 18:11:59 08/22/1908/22/2019 urina lysis , dipst ick Leukocytes +++ Not Available Spr - [facility] [address] [place], [address], 08/22/2019 18:11:59 08/22/1908/23/2019 cultu re, urine specimen description URINE CLEAN CATCH/ MIDSTR EAM Not Available [facility] (Centralized Electronic Ordering - All Locations) Patient Can Go To The Location Of Their Choice, 08/25/2019 07:48:58 08/22/1908/23/2019 cultu re, urine special requests NONE Not Available [facility] (Centralized Electronic Ordering - All Locations) Patient Can Go To The Location Of Their Choice, 08/25/2019 07:48:58 08/22/1908/25/2019 cultu re, urine culture abnormal >100, 000 COL/M L CITRO BACTE R FREUN DII >100, 000 COL/M L STREP TOCOC CI, GR.B BETA HEMOL YTIC ISOLA VERNA SUSCE PTIBI LITY TESTI NG NOT ROUTI SERGIO PERFO RMED ON THIS ISOLA TE. Not Available [facility] (Centralized Electronic Ordering - All Locations) Patient Can Go To The Location Of Their Choice, 08/25/2019 07:48:58 08/22/1908/25/2019 cultu re, urine report status FINAL 2019 Not Available [facility] (Centralized Electronic Ordering - All Locations) Patient Can Go To The Location Of Their Choice, 08/25/2019 07:48:58 08/22/1908/25/2019 cultu re, urine organism ORGANI SM >100,0 00 COL/ML CITROB ACTER ESTEPHANIA II Not Available [facility] (Centralized Electronic Ordering - All Locations) Patient Can Go To The Location Of Their Choice, 08/25/2019 07:48:58 08/22/1908/25/2019 cultu re, urine method METHOD MIN. INHIB. CONC. (MCG/M L) Not Available [facility] (Centralized Electronic Ordering - All Locations) Patient Can Go To The Location Of Their Choice, 08/25/2019 07:48:58 08/22/1908/25/2019 cultu re, urine ampicillin AMPICI LLIN RESIST ANT resistant Not Available [facility] (Centralized Electronic Ordering - All Locations) Patient Can Go To The Location Of Their Choice, 08/25/2019 07:48:58 08/22/1908/25/2019 cultu re, urine ampicillin/s ulbactam AMPICI LLIN/S ULBACT AM RESIST ANT resistant Not Available [facility] (Centralized Electronic Ordering - All Locations) Patient Can Go To The Location Of Their Choice, 08/25/2019 07:48:58 08/22/1908/25/2019 cultu re, urine amoxicillin/ clavulanic acid AMOXIC ILLIN/ CLAVUL AN RESIST ANT resistant Not Available [facility] (Centralized Electronic Ordering - All Locations) Patient Can Go To The Location Of Their Choice, 08/25/2019 07:48:58 08/22/1908/25/2019 cultu re, urine cefazolin CEFAZO CARLOS RESIST ANT resistant Not Available [facility] (Centralized Electronic Ordering - All Locations) Patient Can Go To The Location Of Their Choice, 08/25/2019 07:48:58 08/22/1908/25/2019 cultu re, urine cefepime CEFEPI ME SUSCEP TIBLE susceptib le Not Available [facility] (Centralized Electronic Ordering - All Locations) Patient Can Go To The Location Of Their Choice, 08/25/2019 07:48:58 08/22/1908/25/2019 cultu re, urine ceftriaxone CEFTRI AXONE SUSCEP TIBLE susceptib le Not Available [facility] (Centralized Electronic Ordering - All Locations) Patient Can Go To The Location Of Their Choice, 08/25/2019 07:48:58 08/22/1908/25/2019 cultu re, urine ciprofloxaci n CIPROF LOXACI N SUSCEP TIBLE susceptib le Not Available [facility] (Centralized Electronic Ordering - All Locations) Patient Can Go To The Location Of Their Choice, 08/25/2019 07:48:58 08/22/1908/25/2019 cultu re, urine ertapenem ERTAPE NEM SUSCEP TIBLE susceptib le Not Available [facility] (Centralized Electronic Ordering - All Locations) Patient Can Go To The Location Of Their Choice, 08/25/2019 07:48:58 08/22/1908/25/2019 cultu re, urine gentamicin GENTAM ICIN SUSCEP TIBLE susceptib le Not Available [facility] (Centralized Electronic Ordering - All Locations) Patient Can Go To The Location Of Their Choice, 08/25/2019 07:48:58 08/22/1908/25/2019 cultu re, urine levofloxacin LEVOFL OXACIN SUSCEP TIBLE susceptib le Not Available [facility] (Centralized Electronic Ordering - All Locations) Patient Can Go To The Location Of Their Choice, 08/25/2019 07:48:58 08/22/1908/25/2019 cultu re, urine meropenem MEROPE NEM SUSCEP TIBLE susceptib le Not Available [facility] (Centralized Electronic Ordering - All Locations) Patient Can Go To The Location Of Their Choice, 08/25/2019 07:48:58 08/22/1908/25/2019 cultu re, urine nitrofuranto in NITROF URANTO IN SUSCEP TIBLE susceptib le Not Available [facility] (Centralized Electronic Ordering - All Locations) Patient Can Go To The Location Of Their Choice, 08/25/2019 07:48:58 08/22/1908/25/2019 cultu re, urine piperacillin /tazobactam PIPERA CILLIN /TAZOB AC SUSCEP TIBLE susceptib le Not Available [facility] (Centralized Electronic Ordering - All Locations) Patient Can Go To The Location Of Their Choice, 08/25/2019 07:48:58 08/22/1908/25/2019 cultu re, urine trimeth/sulf amethox TRIMET H/SULF AMETHO X SUSCEP TIBLE susceptib le Not Available [facility] (Centralized Electronic Ordering - All Locations) Patient Can Go To The Location Of Their Choice, 08/25/2019 07:48:58 08/22/1908/25/2019 cultu re, urine tetracycline TETRAC YCLINE SUSCEP TIBLE susceptib le Not Available [facility] (Centralized Electronic Ordering - All Locations) Patient Can Go To The Location Of Their Choice, 08/25/2019 07:48:58 Result Notes None recorded. Medical Equipment None Reported. Allergies Allergen ID Allergen Name Allergen Category Reaction Reaction Severity Criticality Documentation Date Start Date Code Code System Note Provider Name and Address Organization Details Recorded Time 146687 tetanus immune globulin, human medicatio n Not available Not available Not available 08/22/2019 43121 RxNorm NICOLE BEAL NP [address] [place], [address], [place] [facility] 0 18:03:55 [id number] Demerol medicatio n Not available Not available Not available 08/22/2019 11243 1 RxNorm NICOLE BEAL NP [address] [place], [address], [place] [facility] 0 18:04:17 Medications Name Sig Start Date Stop Date Status Note LastModified by Organization Details LastModified Time Vitamin C 500 mg tablet TAKE 1 TABLET BY MOUTH ONCE DAILY active Not Available Not Available No t Available sertraline 100 mg tablet TK 1 T PO D active Not Available Not Available No t Available sulfamethox azole 800 mg-trimetho prim 160 mg tablet 08/21 completed Not Available Not Available Not Available cyclopentol ate 1 % eye drops active Not Available Not Available Not Available prednisolon e acetate 1 % eye drops,suspe nsion 08/21 completed Not Available Not Available Not Available cephalexin 500 mg capsule 500 mg PO administe red on scene. Time administe red:1800 2019 active Not Available Not Available Not Avai lable gabapentin 300 mg capsule 08/21 completed Not Available Not Available Not Available sertraline 50 mg tablet active Not Available Not Available Not Available oxycodone 5 mg tablet 08/21 completed Not Available Not Available Not Available loratadine active Not Available Not Av ailable Not Available Readi-Cat 2 2 % (w/v) oral suspension USE PER RADIOLOGY active Not Available Not Available No t Available Flucelvax Quad (PF) 60 mcg (15 mcg x 4)/0.5 mL IM syringe ADM 0.5ML IM UTD active Not Available Not Available No t Available Vitals Date Recorded Respiratory rate Body temperature Oxygen saturation Oxygen saturation in Arterial blood by Pulse oximetry Heart rate Systolic blood pressure Diastolic blood pressure Provider Name and Address Organization Details Last Updated DateTime 0 16 /min 98.5 [degF] 97 % 97 % 72 /min 100 mm[Hg] 60 mm[Hg] Not Available [facility] 0 18:06:31 Social History None recorded. Functional Status None recorded. Mental Status None recorded. Family History Relationship Description Onset Age of this Age Resolved Age Notes LastModified by Organization Details LastModified Time Father No current problems or disability [email or web address] Not available 18:07:21 Mother No current problems or disability [email or web address] Not available 18:07:21 Mother Malignant neoplastic disease [email or web address] Not available 07/2019 18:07:34 Medical History Condition Response Depression Y Gynecological HistoryNo gynecological history recorded. Obstetrics History GPAL:G 0 P 0 0 0 0 Past Encounters Encounter ID Performer Location Encounter Start Date Encounter Closed Date Diagnosis/Indication Diagnosis SNOMED-CT Code Diagnosis ICD10 Code Diagnosis Note [id number] NICOLE BEAL NP [facility] - HOME [address] [place], [place] [address] [address] 08/22/2019 18:02:23 08/23/2019 15:41:19 Urinary tract infectious disease 51186970 N39.0 Health Concerns Section Related Observation LastModified by Organization Detai ls LastModified Time None Recorded Concern Status LastModified by Organization Details LastModified Time None Recorded Advance Directives Directive None Recorded Payers Encounter Date Sequence Insurance Name Policy Number Policy Schneider Covered Member ID Schneider Member ID Guarantor Name 08/22/2019 1 [facility] [id number] Nahid Schaefer [id number] Nahid Schaefer Notes Date Note Type Note Provider Name and Address Organization Details Recorded Time 08/22/2019 text/html Patient is a 59-[facility]. We have been doing her household did treat other family members in the past. She has a medical history significant for depression, osteoarthritis, frequent urinary tract infections related to bladder sling surgery in the past. She contacted [facility] today because she has been having left sided abdominal pain which she reports is frequently present when she has urinary tract infections. She tells me that she was swimming in a [place], she says that she frequently gets infections after doing this. She had some old Flagyl at all that she started taking thinking it would help with her symptoms but it contributed to some nausea. She has been drinking plenty of fluids. Denies low back pain. NICOLE BEAL, ESME [address], [place], [address], [place] [facility] 08/22/2019 18:40:36 OBGyn Episode No OBEpisode recorded.
== END 2024-06-14 11:54 | disposition home or self-care (01) ==
LOC: HO.HOS 11:39
PROVIDERS: PCP Family Medicine; Visit Provider Physician Assistant
DX: S52.502A Unspecified fracture of the lower end of left radius, initial encounter for closed fracture (principal); S52.122A Displaced fracture of head of left radius, initial encounter for closed fracture
CPT/HCPCS: 99213

== ENCOUNTER → 2024-06-14 11:40 | Outpatient (BNV) | payer OTHER, SELFPAY | PROVIDERS: Visit Provider Radiology Diagnostic Radiology | DX: M25.532 Pain in left wrist (principal) | CPT/HCPCS: 73110 ==